=== PATIENT | female | born 1955 | race Caucasian/White ===

== ENCOUNTER 2024-05-27 11:10 | Emergency (ER) | payer OTHER ==
[~2024-05-27] VITALS: Ht 157.5 cm; Wt 66.8 kg
[~2024-05-27 11:10] MED LIST: ALBU8.5H8 IH; ASPI-556 PO; CALC-877 PO; CHL25 PO; DSS100 PO; GABA-1216 PO; GLIM2TAB35 PO; GUAI118L40 PO; HYDR28CR96 TP; IBUP-1493 PO; INSLAN SQ; INSNOV SQ; LEVO50 PO; LORA10TA7 PO; LOSA-381 PO; METF-1211 PO; OMEP-148 PO; PARO10TA71 PO; PRAV40TA4 PO; PRED-729 PO; SUMA25TA15 PO
[2024-05-27 11:18] VITALS: BP 134/72; PULSE 75; RESP 16; TEMP 98.1; O2SAT 99
[2024-05-27] MEDS ORDERED: CIPR7.5D7 AD (11:35)
== END 2024-05-27 12:04 | disposition home or self-care (01) ==
LOC: EMS 11:28
DX: H72.821 Total perforations of tympanic membrane, right ear (principal); E11.9 Type 2 diabetes mellitus without complications; I10 Essential (primary) hypertension; J45.909 Unspecified asthma, uncomplicated; E03.9 Hypothyroidism, unspecified; E78.00 Pure hypercholesterolemia, unspecified; F32.A Depression, unspecified; Z79.52 Long term (current) use of systemic steroids; Z79.82 Long term (current) use of aspirin; Z79.84 Long term (current) use of oral hypoglycemic drugs; Z98.51 Tubal ligation status; Z79.899 Other long term (current) drug therapy
CPT/HCPCS: 99283; Z7502